=== PATIENT | female | born 1995 | race Two or more races ===

== ENCOUNTER 2018-12-19 12:24 | Emergency (ER) | payer SELFPAY ==
[~2018-12-19] VITALS: Ht 157.5 cm; Wt 102.1 kg
--- NOTE | 2018-12-19 12:40 | NUR ---
Patient came in to the ER due to dog bite on the right arm. Ambulatory. Kept comfortable, will continue to monitor accordingly.
[2018-12-19] MEDS ORDERED: LIDOCAINE 1%-EPI 1:100,000 20 ML VIAL ONE (12:52)
[2018-12-19] MEDS ORDERED: TDAP [DIPH/PERTUSSIS/TET] 0.5 ML VIAL IM ONE ×2 (13:00→13:11)
[2018-12-19 13:25] VITALS: BP 125/71
--- NOTE | 2018-12-19 13:26 | NUR ---
Patient discharged to home in stable condition. Written and verbal after care instructions given. Patient verbalizes understanding of instruction.
== END 2018-12-19 13:25 | disposition home or self-care (01) ==
LOC: ER 12:24
DX: S51.811A Laceration without foreign body of right forearm, initial encounter (principal); W54.0XXA Bitten by dog, initial encounter; Y93.89 Activity, other specified; Y92.89 Other specified places as the place of occurrence of the external cause; Y99.8 Other external cause status
CPT/HCPCS: 12002; 90471; 90715; 99283; J3490